=== PATIENT | male | born 1985 | race African-American/Black ===

== ENCOUNTER 2017-12-31 21:41 | Emergency (ER) | payer SELFPAY ==
[2017-12-31 21:57] VITALS: BP 133/86
--- NOTE | 2017-12-31 23:02 | UC ---
Throat Pain/Nasal Lupillo HPI - HPI Summary HPI Summary: 32-year-old male comes in with a chief complaint of a sore on the inside of his right cheek. He would like attested to determine what at its. It was about 1 cm in diameter 2 days ago now it's smaller. It was painful. The patient declines telling me his sexual preference. He denies any genital symptoms. - History of Current Complaint Chief Complaint: [place]CS[place] Stated Complaint: SORE IN MOUTH Time Seen by Provider: 12/31/17 22:23 Pain Intensity: 0 - Allergies/Home Medications Allergies/Adverse Reactions: Allergies Allergy/AdvReac Type Severity Reaction Status Date / Time No Known Allergies Allergy Verified 12/31/17 21:57 Home Medications: Home Medications NK [No Home Medications Reported] 12/31/17 [History Confirmed 12/31/17] PMH/Surg Hx/FS Hx/Imm Hx Previously Healthy: Yes - Surgical History Surgical History: Yes Surgery Procedure, Year, and Place: DENTAL EXTRACTION - Family History Known Family History: Positive: Non-Contributory - Social History Alcohol Use: None Substance Use Type: None Smoking Status (MU): Never Smoked Tobacco Review of Systems All Other Systems Reviewed And Are Negative: Yes Constitutional: Positive: Negative Skin: Positive: Negative Eyes: Positive: Negative ENT: Positive: Other - SEE HPI Respiratory: Positive: Negative Cardiovascular: Positive: Negative Gastrointestinal: Positive: Negative Genitourinary: Positive: Negative Motor: Positive: Negative Neurovascular: Positive: Negative Musculoskeletal: Positive: Negative Neurological: Positive: Negative Psychological: Positive: Negative Is Patient Immunocompromised?: No Physical Exam Triage Information Reviewed: Yes Appearance: Well-Appearing, No Pain Distress, Well-Nourished Vital Signs: Initial Vital Signs Temp 98.1 F 12/31/17 21:51 Pulse 90 12/31/17 21:51 Resp 16 12/31/17 21:51 BP 133/86 12/31/17 21:51 Pulse Ox 99 12/31/17 21:51 Vital Signs Reviewed: Yes Eye Exam: Normal Eyes: Positive: Conjunctiva Clear ENT Exam: Normal ENT: Positive: Pharynx normal, TMs normal, Other - On the inside of the right cheek there is a 5 mm raised area that does not have an ulceration at this time. This was the area that I obtained the HSV swab from. Neck exam: Normal Neck: Positive: Supple Respiratory: Positive: Lungs clear, Normal breath sounds, No respiratory distress Cardiovascular: Positive: RRR Musculoskeletal Exam: Normal Musculoskeletal: Positive: Strength Intact, ROM Intact Neurological Exam: Normal Neurological: Positive: Alert, Muscle Tone Normal Psychological Exam: Normal Psychological: Positive: Age Appropriate Behavior Skin Exam: Normal Throat Pain/Nasal Course/Dx - Course Course Of Treatment: HSV PCR was obtained from the right cheek and the results are pending. We discussed further testing for gonorrhea and chlamydia syphilis and hepatitis the patient declined. - Differential Dx/Diagnosis Provider Diagnoses: ORAL LESION Discharge - Sign-Out/Discharge Documenting (check all that apply): Patient Departure All imaging exams completed and their final reports reviewed: No Studies - Discharge Plan Condition: Stable Disposition: HOME Patient Education Materials: Oral Herpes Simplex Virus Infections (ED), Canker Sores (ED), Gingivostomatitis (ED) Referrals: [facility] [place] [facility] [Outside] Additional Instructions: FOLLOW UP WITH YOUR DOCTOR IF NOT COMPLETELY IMPROVED. GET RECHECKED FOR ANY WORSENING OF YOUR CONDITION OR QUESTIONS OR CONCERNS. - Billing Disposition and Condition Condition: STABLE Disposition: Home
== END 2017-12-31 23:10 | disposition home or self-care (01) ==
LOC: UCEAST 21:41
DX: K13.79 Other lesions of oral mucosa (principal)
CPT/HCPCS: 87529; 99201; G0463